=== PATIENT | male | born 1995 | race Caucasian/White ===

== ENCOUNTER 2016-09-27 19:56 | Emergency (ER) | payer OTHER ==
[~2016-09-27] VITALS: Ht 180.3 cm; Wt 75.8 kg
[~2016-09-27 19:56] MED LIST: PERCOCET 325 MG1 TA2 PO
[2016-09-27 20:03] VITALS: BP 122/72
[2016-09-27] MEDS ORDERED: POLYTRIM EYE DR10 ML OPH (20:22)
--- NOTE | 2016-09-27 20:22 | ED EYE COMPLAINT ---
History of Present Illness General Chief Complaint: Eye Problems Stated Complaint: " LT EYE IRRITATION [id number]" Source: patient Exam Limitations: no limitations Vital Signs & Intake/Output Vital Signs & Intake/Output Vital Signs Date Time Temp Pulse Resp B/P Pulse O2 O2 Flow FiO2 Ox Delivery Rate 09/27 2002 98.1 78 16 122/72 98 Room Air Allergies Coded Allergies: NO KNOWN ALLERGIES (09/27/16) Reconcile Medications Albuterol Sulfate (Proair Hfa) 90 MCG HFA.AER.AD 2 PUF INH PRN ASTHMA ( Reported) Lisdexamfetamine Dimesylate (Vyvanse) 40 MG CAPSULE 1 CAP PO PRN ADD ( Reported) Polytrim (Polytrim Eye Drops) 10,000 UNIT-1 MG/ML DROPS 1 GTT OPH Q6 conjunctvitis Tofacitinib Citrate (Xeljanz) 5 MG TABLET 1 TAB PO BID ALOPECIA (Reported) Triage Note: REPORTS LEFT EYE IRRITATION OF UNKNOWN ORIGEN. Triage Nurses Notes Reviewed? yes Onset: Abrupt Duration: hour(s): (4), constant, continues in ED Timing: recent history Injury Environment: home No Modifying Factors: none HPI: 21-year-old male comes into emergency room for further evaluation of left eye pain. Symptoms been going on for the past 4 hours. Some discharge out of the corner of the eye. Denies any trauma to the eye. Patient says it is not a pain but more of an irritation. Denies any vision loss. Denies any contact use. Denies any other associated symptoms. (USHA HAWKINS) Past History Travel History Traveled to [place] past 21 day No Medical History Any Pertinent Medical History? see below for history Neurological: NONE EENT: NONE Cardiovascular: NONE Respiratory: asthma Gastrointestinal: NONE Hepatic: NONE Renal: NONE Musculoskeletal: NONE Psychiatric: NONE Endocrine: NONE Surgical History Surgical History: non-contributory Psychosocial History What is your primary language [place]ian Tobacco Use: Never used Family History Hx Contributory? No (USHA HAWKINS) Review of Systems Review of Systems Constitutional: Reports: no symptoms. Eyes: Reports: see HPI. Ear: Reports: no symptoms. Nose: Reports: no symptoms. Mouth: Reports: no symptoms. Throat: Reports: no symptoms. Respiratory: Reports: no symptoms. Cardiovascular: Reports: no symptoms. GI: Reports: no symptoms. Genitourinary: Reports: no symptoms. Musculoskeletal: Reports: no symptoms. Skin: Reports: no symptoms. Neurological/Psychological: Reports: no symptoms. Hematologic/Endocrine: Reports: no symptoms. Immunologic/Allergic: Reports: no symptoms. All Other Systems: Reviewed and Negative (USHA HAWKINS) Physical Exam General Appearance: well developed/nourished General Inspection: DISCHARGE OUT OF CORNER OF EYE, MILD INJECTION, Eyelid: normal inspection Conjunctiva/Sclera: normal inspection Cornea: normal inspection EOM: intact Pupil: normal accommodation, normal pupil, PERRL General Inspection: normal inspection Eyelid: normal inspection Conjunctiva/Sclera: normal inspection Cornea: normal inspection EOM: intact Pupil: normal accommodation, normal pupil, PERRL Physical Exam Head: atraumatic Nose: normal inspection Mouth/Throat: normal mouth inspection Neck: normal inspection Cardiovascular/Respiratory: no respiratory distress Neurologic/Psych: awake, alert, oriented x 3, normal mood/affect Skin: intact, normal color, warm/dry (USHA HAWKINS) Progress Differential Diagnosis: corneal abrasion, corneal foreign body, conjunctivitis, detached retina, glaucoma, globe rupture, retinal art./v. occlusion Plan of Care: 09/27/2016 9:08:17 PM Clinically looks well. In no apparent distress. No evidence of trauma. Started on topical and vital drops. Referred to ophthalmology. (USHA HAWKINS) Departure Departure Disposition: HOME OR SELF CARE Condition: Stable Clinical Impression Primary Impression: Conjunctivitis, left eye Referrals: ISATU HALL,OWEN RAGLAND MD,AIMEE Linder (PCP/Family) Additional Instructions: Use Polytrim drops as prescribed. Follow-up with stranding machine operator helper if not better in 3 days. Return if any other concerns worsening symptoms. Departure Forms: Customer Survey General Discharge Information Prescriptions: Current Visit Scripts Polytrim (Polytrim Eye Drops) 1 GTT OPH Q6 #10 ML (USHA HAWKINS) PA/CARPET MEASURER Co-Sign Statement Statement: ED Attending supervision documentation- [] I saw and evaluated the patient. I have also reviewed all the pertinent lab results and diagnostic results. I agree with the findings and the plan of care as documented in the PA's/CARPET MEASURER's documentation. [x] I have reviewed the ED Record and agree with the PA's/CARPET MEASURER's documentation. [] Additions or exceptions (if any) to the PAs/CARPET MEASURER's note and plan are summarized below: [] (SHERWIN HALL,ELTON Villasenor)
[2016-09-27] MEDS ORDERED: XELJANZ5 M1 PO (20:26)
[2016-09-27] MEDS ORDERED: VYVANSE40 M1 PO (20:27)
[2016-09-27] MEDS ORDERED: PROAIR HFA8.5 GM INH (20:27)
== END 2016-09-27 20:29 ==
LOC: ERH 19:56
DX: H10.9 Unspecified conjunctivitis (principal)